=== PATIENT | male | born 1990 | race Two or more races ===

== ENCOUNTER 2024-10-12 14:27 | Emergency (ER) | payer MEDICAID, SELFPAY ==
[2024-10-12 14:41] VITALS: BP 110/72; PULSE 99; RESP 19; TEMP 39.4; O2SAT 99; BMI 33.6
--- NOTE | 2024-10-12 14:45 | XR_ITS ---
Examination: CT abdomen with intravenous contrast CT pelvis with intravenous contrast 2-D coronal reconstructions 2-D sagittal reconstructions Date and time of exam:October 12, 2024 1718 hours Comparison November 18, 2013 INDICATIONS: Lower abdominal pain today with painful urination. History acute sigmoid diverticulitis on CT study November 2023 CTDI: vol (mGy) 8.68 DLP: (mGycm) 561 Technique: Multiple axial sections of the abdomen and pelvis have been obtained. 64 slice high-resolution scanner used. 3 mm axial sections have been obtained, post intravenous injection 60 cc [id number] 2-D sagittal, coronal reconstructions obtained. Low dose protocols were performed. One or more of the following dose reduction techniques were used; automated exposure control, adjustment of the mA and/or KV according to patient size, use of iterative reconstruction technique. Findings: No focal liver or splenic lesions No gallstones No pancreatic or adrenal mass No renal or ureteral calculi, no hydronephrosis Aorta normal size Normal appendix Colonic diverticulosis Acute diverticulitis in the sigmoid colon No peridiverticular abscess Urinary bladder intact IMPRESSION: Findings most consistent with acute diverticulitis in the sigmoid colon, although heredia of the sigmoid colon prominently thickened Recommend post treatment of the diverticulitis follow-up colonoscopy to exclude underlying malignant neoplasm of the sigmoid colon
--- NOTE | 2024-10-12 14:48 | EDNOTE_ITS ---
ED Abdominal Pain RME/HPI General Chief Complaint: Abdominal Pain Stated complaint: Abdominal pain X 2 days and painful urination Time seen by provider: 10/12/24 14:29 Arrival date/time: 10/12/24 14:27 RME / HPI RME / HPI narrative: 33-year-old male patient came in for evaluation regarding right lower quadrant pain. Onset of symptoms for the last 2 days, associated with dysuria. Severity of symptoms mild. Patient was also noted to have fever. Denies any vomiting. Denies any nausea. Denies any diarrhea or constipation. Denies any other complaints no medications taken prior to arrival. Related Data Previous Rx's ?Medication ?Instructions ?Recorded ciprofloxacin HCl 500 mg tablet 500 mg PO BID #14 tabs 10/12/24 (Cipro) metronidazole 500 mg tablet 500 mg PO BID 7 days #14 tabs 10/12/24 Allergies Allergy/AdvReac Type Severity Reaction Status Date / Time No Known Allergies Allergy Verified 01/03/24 14:02 Review of Systems Review of Systems Narrative Review of Systems: Review of system reviewed and within normal limits except mentioned in HPI ED Exam Narrative Physical exam: VITAL SIGNS: Reviewed. GENERAL APPEARANCE: Alert and interactive, follows commands, no acute distress, HEAD AND FACE: Non-traumatic. ENT: PERRL, pink conjunctivitis, eyelid no trauma, Mucous membrane moist. NECK: Supple, nontender, no nuchal rigidity. CHEST: No tenderness, no crepitus, no paradoxical movement, no retractions. LUNGS: Clear, well ventilated, symmetric, no rales, no wheezing, no ronchi, no stridor, good breath sounds bilaterally. HEART: Regular rate, regular rhythm, no murmur, no gallops. ABDOMEN: Soft, positive bowel sounds, nondistended, no guarding, right lower quadrant tenderness, no rebound, no masses, RECTAL: Deferred. GENITAL: Deferred. NEUROLOGICAL: Gross motor function intact sensory function intact, Appropriate for age. MUSCULOSKELETAL: low back nontender, full range of motion. EXTREMITIES: Nontender, full range of motion. SKIN: Color pink, dry, no rash, no lacerations, no abrasions, no contusions. LYMPHATICS: Deferred. Course Quality Measures none Orders Category Date Time Status CT Screening NOW Care 10/12/24 14:[address] Screening NOW Care 10/12/24 14:46 Active Insert IV NOW Care 10/12/24 14:[address] abdomen pelvis w con Stat Exams 10/12/24 14:45 Completed CBC Stat Lab 10/12/24 14:52 Completed Comprehensive Metabolic Panel Stat Lab 10/12/24 14:52 Completed Lipase Stat Lab 10/12/24 14:52 Completed UA, C/S IF [Urinalysis, C/S if Indicated] Stat Lab 10/12/24 14:59 Completed Acetaminophen Tab [Tylenol ES Tab] Med 10/12/24 14:45 Discontinued 1,000 mg PO X1 ONE Ciprofloxacin HCl [Ciprofloxacin] Med 10/12/24 20:04 Discontinued 500 mg PO X1 ONE metroNIDAZOLE [Flagyl] Med 10/12/24 20:04 Discontinued 500 mg PO X1 ONE Vital Signs Vital signs: Vital Signs Temperature 102.9 F H 10/12/24 14:41 Pulse Rate 99 10/12/24 14:41 Respiratory Rate 19 10/12/24 14:41 Blood Pressure 110/72 10/12/24 14:41 Pulse Oximetry (%) 99 10/12/24 14:41 Oxygen Delivery Method Room Air 10/12/24 14:41 Abdominal Pain MDM MDM Narrative MDM Narrative:: Laboratory workup all came back unremarkable. Except for leukocytosis 15.3 CMP unremarkable except for slightly elevated total bili 1.8. CT scan of the abdomen showed indings most consistent with acute diverticulitis in the sigmoid colon, although heredia of the sigmoid colon prominently thickened Recommend post treatment of the diverticulitis follow-up colonoscopy to exclude underlying malignant neoplasm of the sigmoid colon Results discussed with the patient, patient was given Flagyl and Cipro in the ED. Patient was also advised to closely follow-up with PCP and for referral to GI specialist for outpatient colonoscopy post diverticulitis treatment to rule out malignancy. Patient agrees with the plan. Patient data External records reviewed:: None Clinical information provided by:: patient Social determinants that could affect healthcare access:: none Patient has the following chronic illnesses:: None How is presenting disease/condition affected by chronic disease/condition?: no chronic disease Evaluation data The following diagnostics were reviewed and interpreted by me:: lab results and radiology exam(s) Lab and/or radiology exams considered but not ordered:: None Interpretation Summary: Laboratory workup all came back unremarkable. Except for leukocytosis 15.3 CMP unremarkable except for slightly elevated total bili 1.8. CT scan of the abdomen showed indings most consistent with acute diverticulitis in the sigmoid colon, although heredia of the sigmoid colon prominently thickened Recommend post treatment of the diverticulitis follow-up colonoscopy to exclude underlying malignant neoplasm of the sigmoid colon Medications / Prescriptions Medications or Prescriptions considered but not ordered:: None Medication administrations:: Medication Administration History Discontinued Medications Acetaminophen (Acetaminophen 500 Mg Tablet) 1,000 mg PO X1 ONE Stop: 10/12/24 14:46 Last Admin: 10/12/24 14:53 Dose: 1,000 mg Documented By: LICHA Ciprofloxacin (Ciprofloxacin Hcl 250 Mg Tablet) 500 mg PO X1 ONE Stop: 10/12/24 20:05 Metronidazole (Metronidazole 250 Mg Tablet) 500 mg PO X1 ONE Stop: 10/12/24 20:05 Tylenol, Cipro, Flagyl Consultations Consultation(s) initiated? (list below): No Diagnosis Differential diagnosis abdominal pain: abdominal pain, diverticulitis and pancreatitis Most likely diagnosis given after review of the tests above:: Diverticulitis Admission Indicated Admission indicated?: not indicated Admission Request Was there a request for admission?: No Disposition Plan Disposition Plan: Discharge Discharge Attestation Discharge Attestation: The patient and all family members were given an opportunity to ask questions and understood the discharge instructions. Discharge instructions specifically effects, indications for sooner follow up or return to the emergency department, and the expected course of current diagnosis. Patient condition: Stable Discharge Plan Plan Patient Disposition: HOME (Self Care) Disposition Comment: Stable Prescriptions/Referrals Prescriptions/Med Rec: New ciprofloxacin HCl [Cipro] 500 mg tablet 500 mg PO BID Qty: 14 0RF metronidazole 500 mg tablet 500 mg PO BID 7 Days Qty: 14 0RF Referrals: No Primary/Family,Physician [Primary Care Provider] - In 1 week Problem List Clinical Impression: Diverticulitis Patient/Caregiver Discharge Instructions Discharge Activity: activity as tolerated Education Materials: ED Diverticulitis Additional Instructions: Thank you for the opportunity for serving you today. You are stable for discharged . You are advised to: Follow-up with your PCP in 1 to 2 days and asked her PCP to refer you to a GI sp ecialist for outpatient colonoscopy to rule out malignancy post treatment of your diverticulitis. Return to ED for worsening of symptoms Increase oral fluids Take medication as prescribed Liquid diet for 2 days advance as tolerated Print Language: Chinese Stand Alone Forms: [employer] Award Info., Patient Portal Info Letter [employer] Supervising Physician [employer] Supervising Physician: MD Charlene
[2024-10-12] MEDS: ACETAMINOPHEN 500 MG TABLET 1000 MG PO (14:53)
[2024-10-12 14:57] LABS: Basophils # (Auto) 0.1 Thou/mm3 (0.0-0.2); Basophils % (Auto) 1 % (0-2.5); Eosinophils % (Auto) 0 % (0-10); Hematocrit 40.7 % (41.0-53.0); Hemoglobin 14.1 g/dL (13.5-16.0); Immature Granulocytes % (Auto) 0 % (0-0); Immature Granulocytes Auto 0.05 Thou/mm3 (0.00-0.00); Lymphocytes # (Auto) 2.2 Thou/mm3 (1.0-4.8); Lymphocytes % (Auto) 15 % (10-50); Mean Corpuscular HGB Conc 34.6 g/dl (31.0-37.0); Mean Corpuscular Hemoglobin 29.8 pg (25.0-35.0); Mean Corpuscular Volume 86 fL (80-100); Monocytes # (Auto) 1.8 Thou/mm3 (0.0-0.8); Monocytes % (Auto) 12 % (0-12); Neutrophils # (Auto) 11.1 Thou/mm3 (1.8-7.7); Neutrophils % (Auto) 73 % (37-80); Nucleated Red Blood Cell % 0 /100 WBC (0); Platelet Count 225 Thou/mm3 (140-440); RDW Standard Deviation 42.6 fL (35.1-43.9); Red Blood Count 4.73 Miln/mm3 (4.50-5.90); White Blood Count 15.3 Thou/mm3 (3.8-10.6)
[2024-10-12 15:17] LABS: Alanine Aminotransferase 21 U/L (10-49); Albumin, Serum 5.2 gm/dL (3.5-5.0); Albumin/Globulin Ratio 1.7 (1.2-2.2); Alkaline Phosphatase 79 U/L (46-116); Anion Gap 8 (7-16); Aspartate Amino Transferase 28 U/L (0-34); BUN/Creatinine Ratio 13 Ratio (12-20); Bilirubin,Total 1.8 mg/dL (0.3-1.2); Blood Urea Nitrogen 12 mg/dL (9-23); Calcium 9.9 mg/dL (8.3-10.6); Calcium (Corrected) 9.9 mg/dL (8.5-10.1); Carbon Dioxide 24.6 mMol/L (20.0-31.0); Chloride 100 mMol/L (98-107); Creatinine (Component) 0.9 mg/dL (0.6-1.3); Estimated Creatinine Clearance 110.2 mL/min (>60); Glucose 91 mg/dL (74-106); Lipase 32 U/L (12-53); Osmolality,Calculated 266 (275-295); Potassium 3.8 mMol/L (3.4-5.1); Sodium 133 mMol/L (136-145); Total Protein 8.2 gm/dL (5.7-8.2); eGFR > 60 See Note
[2024-10-12 15:25] LABS: Collection Type, Urine Clean Catch
[2024-10-12 15:36] LABS: Bilirubin,Urine Negative (Negative); Blood,Urine Negative (Negative); Clarity,Urine Clear (Clear/Hazy); Color,Urine Yellow (Lt Yel-Yel); Culture Indicated,Urine Not Indicated; Glucose, Urine Negative (Negative); Ketones,Urine 1+ (Negative); Leukocyte Esterase,Urine Negative (Negative); Nitrite,Urine Negative (Negative); Protein,Urine Trace (Neg - Trace); RBC,Urine 2 /hpf (0-3); Specific Gravity,Urine 1.025 (1.001-1.035); Squamous Epithelial Cell,Urine 1 /hpf (0-5); Urobilinogen,Urine Negative mg/dL (0.0-1.0); WBC,Urine 2 /hpf (0-5)
[2024-10-12 15:56] VITALS: TEMP 37.2
[2024-10-12 16:23] LABS: Basophils (Manual) 1 % (0-2); Lymphocytes (Manual) 24 % (20-44); Monocytes (Manual) 14 % (2-9); Neutrophils (Manual) 61 % (50-70)
[2024-10-12] MEDS: CIPROFLOXACIN HCL 250 MG TABLET 500 MG PO (20:23)
[2024-10-12] MEDS: metroNIDAZOLE 250 MG TABLET 500 MG PO (20:23)
== END 2024-10-12 20:33 | disposition home or self-care (01) ==
PROVIDERS: Nurse Practitioner Primary Care; Emergency Provider Emergency Medicine
DX: K57.32 Diverticulitis of large intestine without perforation or abscess without bleeding (principal)
CPT/HCPCS: 36415; 74177; 80053; 81001; 83690; 85025; 99285; A4649; Q9967; A9270